=== PATIENT | male | born 1970 | race Caucasian/White ===

== ENCOUNTER 2022-07-31 20:30 | Emergency (ER) | payer OTHER ==
[~2022-07-31] VITALS: Ht 193 cm; Wt 110.2 kg
[2022-07-31] MEDS ORDERED: Lisinopril2.5 MG PO (20:43)
[2022-07-31] MEDS ORDERED: METF500 PO (20:43)
[2022-07-31 21:00] LABS: BASOPHILS ABSOLUTE AUTO 0.06 K/mm3 (0.00-0.23); BASOPHILS PERCENT AUTO 1 % (0-2); EOSINOPHILS ABSOLUTE AUTO 0.05 K/mm3 (0.00-0.68); EOSINOPHILS PERCENT AUTO 1 % (0-6); Hematocrit 51.4 % (37.0-53.0); Hemoglobin 17.7 g/dL (13.5-17.5); IMMATURE GRAN ABSOLUTE AUTO 0.02 K/mm3 (0.00-0.10); IMMATURE GRAN PERCENT AUTO 0 % (0-1); LYMPHOCYTES ABSOLUTE AUTO 3.46 K/mm3 (0.84-5.20); LYMPHOCYTES PERCENT AUTO 57 % (21-46); MONOCYTES ABSOLUTE AUTO 0.43 K/mm3 (0.16-1.47); MONOCYTES PERCENT AUTO 7 % (4-13); Mean Corpuscular HGB 29.4 pg (26.0-34.0); Mean Corpuscular HGB Conc 34.4 g/dL (31.5-36.5); Mean Corpuscular Volume 85 fL (80-100); Mean Platelet Volume 10.7 fL (9.1-12.4); NEUTROPHILS PERCENT AUTO 34 % (41-73); Platelet Count 210 K/mm3 (150-400); RDW Coefficient Variation 12.4 % (11.7-14.2); RDW Standard Deviation 38.5 fL (35.1-46.3); Red Blood Cell Count 6.02 M/mm3 (4.30-5.90); White Blood Cell Count 6.12 K/mm3 (4.00-11.30)
[2022-07-31 21:26] LABS: Albumin, Blood 4.6 g/dL (3.4-5.0); Albumin/Globulin Ratio 1.6 (0.8-1.8); Bilirubin, Total 0.6 mg/dL (0.1-1.0); Bun/Creatinine Ratio 8.7 (12.0-20.0); Calcium, Blood 9.1 mg/dL (8.5-10.1); Creatinine, Blood 1.03 mg/dL (0.60-1.20); Globulin, Blood 2.8 g/dL (2.2-4.0); Potassium, Blood 3.4 mmol/L (3.5-5.5); Total Protein, Blood 7.4 g/dL (6.4-8.2)
[2022-07-31] MEDS ORDERED: METO25ER PO (23:07)
== END 2022-07-31 23:16 | disposition home or self-care (01) ==
LOC: ER 20:30
PROVIDERS: Emergency Medicine
DX: R07.9 Chest pain, unspecified (principal); I10 Essential (primary) hypertension
CPT/HCPCS: 36415; 71045; 80053; 83880; 84484; 85025; 93005; 93010; A9270

== ENCOUNTER 2022-10-04 06:44 | Day surgery (SDC) | payer OTHER ==
[~2022-10-04] VITALS: Ht 193 cm; Wt 101.8 kg
[~2022-10-04 06:44] MED LIST: LISI5 PO; Lisinopril2.5 MG PO; METF500 PO; METO25ER PO; Vitamin D1000 UNI1 PO
[2022-10-04] MEDS ORDERED: LACT PO (07:12)
[2022-10-04] MEDS ORDERED: Aspir 8181 MG PO (07:12)
[2022-10-04] MEDS ORDERED: METO25ER PO (07:13)
--- NOTE | 2022-10-04 09:00 | NUR ---
PATIENT ARRIVED TO RECOVERY ROOM SITTING UPRIGHT IN CHAIR AND CONVERSING APPROPRIATELY. R RADIAL TR BAND IN PLACE, FULLY INFLATED. SITE C/D/I, SOFT/NONTENDER, NO EVIDENCE OF HEMATOMA. VSS ON ROOM AIR.
--- NOTE | 2022-10-04 09:18 | NUR ---
DISCHARGE INSTRUCTIONS REVIEWED WITH PATIENT AND SPOUSE AT BEDSIDE. ALL QUESTIONS WERE ANSWERED. FOLLOW UP APPOINTM,ENT SCHEDULED. NO CHANGES TO MEDICATION, PATIENT INSTRUCTED ON RESTARTING METFORMIN ON 10/06. VSS ON ROOM AIR. TR IN PLACE. SITE C/D/I, SOFT/NONTENDER, NO EVIDENCE OF HEMATOMA.
--- NOTE | 2022-10-04 09:30 | NUR ---
PATIENT TOLERATING PO INTAKE WELL. VSS ON ROOM AIR. R RADIAL TR BAND IN PLACE. SITE C/D/I, SOFT, NONTENDER, NO EVIDENCE OF HEMATOMA.
--- NOTE | 2022-10-04 09:49 | NUR ---
2 CC OF AIR REMOVED FROM R RADIAL TR BAND. SITE C/D/I, SOFT/NONTENDER, NO EVIDENCE OF HEMATOMA. VSS ON ROOM AIR.
--- NOTE | 2022-10-04 10:09 | NUR ---
PATIENT AMBULATING TO BATHROOM AND VOIDING WITHOUT DIFFICULTY. R RADIAL SITE C/D/I SOFT/NONTENDER, NO EVIDENCE OF HEMATOMA.
--- NOTE | 2022-10-04 10:15 | NUR ---
ALL AIR REMOVED FROM R RADIAL TR BAND. SITE C/D/I SOFT/NONTENDER, NO EVIDENCE OF HEMATOMA. PATIENT DENYING ANY CHEST PAIN. VSS ON TR BAND.
--- NOTE | 2022-10-04 10:48 | NUR ---
PATIENT DISCHARGED HOME AT THIS TIME. PATIENT AMBULATING TO RESTROOM WITHOUT DIFFICULTY. DISCHARGE INSTRUCTIONS AND MEDICATION LIST REVIWED WITH PATIENT AND SPOUSE. TR BAND REMOVED, CLOTH DOT APPLIED. SITE SOFT/NONTENDER, NO EVIDENCE OF HEMATOMA. PIV REMOVED WITHOUT DIFFICULTY, CATHETER INTACT.
== END 2022-10-04 11:04 | disposition home or self-care (01) ==
LOC: MHTC 06:44
DX: I25.10 Atherosclerotic heart disease of native coronary artery without angina pectoris (principal); R94.31 Abnormal electrocardiogram [ECG] [EKG]; R94.39 Abnormal result of other cardiovascular function study; I47.29 Other ventricular tachycardia; I10 Essential (primary) hypertension; F10.11 Alcohol abuse, in remission; I47.1 Supraventricular tachycardia; E11.9 Type 2 diabetes mellitus without complications; E66.9 Obesity, unspecified; Z68.28 Body mass index [BMI] 28.0-28.9, adult
CPT/HCPCS: 76937; 93454; 99152; A9270; C1769; C1887; C1894; J1644; J2250; J3010; J7030; J7050; Q9967

== ENCOUNTER → 2023-02-15 | Outpatient (CLI) | payer OTHER ==
[~2023-02-15] MED LIST changes: +Aspir 8181 MG PO; +LACT PO
== END ==
LOC: LAB SHORT 17:33 → LAB 17:33
DX: E11.9 Type 2 diabetes mellitus without complications (principal)
CPT/HCPCS: 82043

== ENCOUNTER 2023-07-19 07:55 | Day surgery (SDC) | payer OTHER ==
[~2023-07-19] VITALS: Ht 193 cm; Wt 98.3 kg
[2023-07-19] VITALS (17 sets, daily range): BP systolic 93–151; BP diastolic 65–128
[~2023-07-19 07:55] MED LIST changes: +GABA300 PO; +OZEMPIC2 MG/0.75 SC
--- NOTE | 2023-07-19 09:05 | NUR ---
07/19/23 0905 Judith Sheppard HISTORY, CHART, MEDICATIONS AND ALLERGIES REVIEWED BEFORE START OF PROCEDURE. PATIENT CONFIRMS NPO STATUS AND AGREES WITH SCHEDULED PROCEDURE. 3-LEAD EKG REVIEWED WITH PHYSICIAN PRIOR TO START OF PROCEDURE. MONITOR INTACT WITH CONTINUOUS PULSE OXIMETRY,CAPNOGRAPHY, 3-LEAD EKG, INTERMITTENT BP. SUPPLEMENTAL O2 TO BE TITRATED THROUGHOUT PROCEDURE TO MAINTAIN O2 SATURATION ABOVE 90%. PATIENT DETERMINED TO BE ASA APPROPRIATE FOR PROPOFOL SEDATION PRIOR TO START OF PROCEDURE BY DR. PEREZ. MALLAMPATI CLASS 2 AIRWAY: COMPLETE VISUALIZATION OF THE UVULA.
--- NOTE | 2023-07-19 10:08 | NUR ---
Patient up to Ambulate independently. Gait steady. Discharge instructions reviewed with patient. Patient verbalizes understanding. Copy given to patient to take home. Patient States Post-Procedure ride home has been arranged with . Discharged via wheelchair to private car for ride home.
== END 2023-07-19 10:07 | disposition home or self-care (01) ==
LOC: ORSCMMR 07:55 → ORD 09:00 → ORSCMMR 10:07
PROVIDERS: Internal Medicine Gastroenterology
PROC: 0DBM8ZX Excision of Descending Colon, Via Natural or Artificial Opening Endoscopic, Diagnostic (ICD-10-PCS; principal; 2023-07-19 09:00)
DX: Z12.11 Encounter for screening for malignant neoplasm of colon (principal); K63.5 Polyp of colon; K57.30 Diverticulosis of large intestine without perforation or abscess without bleeding; E11.9 Type 2 diabetes mellitus without complications; I10 Essential (primary) hypertension; Z79.85 Long-term (current) use of injectable non-insulin antidiabetic drugs; Z79.84 Long term (current) use of oral hypoglycemic drugs; Z79.899 Other long term (current) drug therapy
CPT/HCPCS: 82947; 88305; J2704; J7120